=== PATIENT | female | born 1995 | race Asian ===

== ENCOUNTER → 2022-09-15 | Outpatient (CLI) | payer OTHER ==
[~2022-09-15] MED LIST: HYDR1TAB94 PO; IBUP600 PO; ONDA4ODT MM; PRENATAL TABLE1 EAC2 PO
[2022-09-15 16:57] LABS: BASOPHILS ABSOLUTE AUTO 0.12 K/mm3 (0.00-0.23); BASOPHILS PERCENT AUTO 1 % (0-2); EOSINOPHILS PERCENT AUTO 1 % (0-6); Hematocrit 36.3 % (33.0-51.0); Hemoglobin 13.3 g/dL (11.5-16.0); IMMATURE GRAN ABSOLUTE AUTO 0.09 K/mm3 (0.00-0.10); IMMATURE GRAN PERCENT AUTO 1 % (0-1); LYMPHOCYTES ABSOLUTE AUTO 3.05 K/mm3 (0.84-5.20); LYMPHOCYTES PERCENT AUTO 19 % (21-46); MONOCYTES PERCENT AUTO 6 % (4-13); Mean Corpuscular HGB 29.3 pg (26.0-34.0); Mean Corpuscular HGB Conc 36.6 g/dL (31.5-36.5); Mean Corpuscular Volume 80 fL (80-100); Mean Platelet Volume 9.3 fL (9.1-12.4); NEUTROPHILS ABSOLUTE AUTO 11.62 K/mm3 (1.96-9.15); NEUTROPHILS PERCENT AUTO 73 % (41-73); Platelet Count 397 K/mm3 (150-400); RDW Coefficient Variation 12.9 % (11.7-14.2); RDW Standard Deviation 36.5 fL (35.1-46.3); Red Blood Cell Count 4.54 M/mm3 (3.80-5.20); White Blood Cell Count 15.88 K/mm3 (4.00-11.30)
[2022-09-15 17:05] LABS: Albumin, Blood 3.8 g/dL (3.4-5.0); Albumin/Globulin Ratio 0.9 (0.8-1.8); Bilirubin, Total 0.4 mg/dL (0.1-1.0); Bun/Creatinine Ratio 15.2 (12.0-20.0); Calcium, Blood 9.3 mg/dL (8.5-10.1); Creatinine, Blood 0.46 mg/dL (0.40-1.00); Globulin, Blood 4.2 g/dL (2.2-4.0); Potassium, Blood 4.5 mmol/L (3.5-5.5)
== END | disposition home or self-care (01) ==
LOC: LAB 16:51 → LAB SHORT 16:51
PROVIDERS: Chiropractor
DX: R10.13 Epigastric pain (principal)
CPT/HCPCS: 80053; 83690; 85025; 87086

== ENCOUNTER 2022-09-16 12:11 | Inpatient (IN) | payer OTHER ==
[~2022-09-16] VITALS: Ht 157.5 cm; Wt 50.7 kg
[2022-09-16 13:15] LABS: BASOPHILS ABSOLUTE AUTO 0.03 K/mm3 (0.00-0.23); BASOPHILS PERCENT AUTO 0 % (0-2); EOSINOPHILS PERCENT AUTO 0 % (0-6); Hematocrit 35.6 % (33.0-51.0); Hemoglobin 12.6 g/dL (11.5-16.0); IMMATURE GRAN ABSOLUTE AUTO 0.09 K/mm3 (0.00-0.10); IMMATURE GRAN PERCENT AUTO 1 % (0-1); LYMPHOCYTES ABSOLUTE AUTO 0.98 K/mm3 (0.84-5.20); LYMPHOCYTES PERCENT AUTO 6 % (21-46); MONOCYTES ABSOLUTE AUTO 0.63 K/mm3 (0.16-1.47); MONOCYTES PERCENT AUTO 4 % (4-13); Mean Corpuscular HGB 28.8 pg (26.0-34.0); Mean Corpuscular HGB Conc 35.4 g/dL (31.5-36.5); Mean Corpuscular Volume 82 fL (80-100); Mean Platelet Volume 9.5 fL (9.1-12.4); NEUTROPHILS PERCENT AUTO 90 % (41-73); Platelet Count 362 K/mm3 (150-400); RDW Coefficient Variation 12.7 % (11.7-14.2); RDW Standard Deviation 38.2 fL (35.1-46.3); Red Blood Cell Count 4.37 M/mm3 (3.80-5.20); White Blood Cell Count 17.63 K/mm3 (4.00-11.30)
[2022-09-16 13:43] LABS: Albumin, Blood 3.6 g/dL (3.4-5.0); Albumin/Globulin Ratio 0.9 (0.8-1.8); Bilirubin, Total 1.6 mg/dL (0.1-1.0); Creatinine, Blood 0.37 mg/dL (0.40-1.00); Globulin, Blood 3.8 g/dL (2.2-4.0); Potassium, Blood 4.4 mmol/L (3.5-5.5); Total Protein, Blood 7.4 g/dL (6.4-8.2)
[2022-09-16 19:04] LABS: Cholesterol 118 mg/dL (50-200); Triglycerides 35 mg/dL (30-140)
[2022-09-16 20:36] LABS: Source, Urine Clean Catch
[2022-09-16 20:42] LABS: Bilirubin, Urine Neg (Neg); Blood, Urine 1+ (Neg); Glucose Qualitative, Urine Neg (Neg); Ketones, Urine 4+ (Neg); Leukocyte Esterase, Urine Neg (Neg); Nitrite, Urine Neg (Neg); Protein, Urine Neg (Neg); Urobilinogen, Urine NORM (Normal)
[2022-09-16 20:55] LABS: Appearance, Urine Clear (Clear); Color, Urine Yellow (P-Yellow)
[2022-09-16 20:57] LABS: Amorphous Light (0-Heavy); Bacteria Few /hpf; Mucus Light (0-Heavy); Red Blood Cells, Urine 0-2 /hpf (0-2); Squamous Epithelial Cells Mod /hpf (Few); White Blood Cells, Urine 0-2 /hpf (0-5)
[2022-09-16 21:36] VITALS: BP 99/79
--- NOTE | 2022-09-17 04:18 | NUR ---
SHIFT SUMMARY 27 YR F ADMITTED ON 09/16/22 FOR ACUTE PANCREATITIS. FULL CODE. NO ACUTE CHANGES THIS SHIFT. PT REPORTED PAIN AND WAS GIVEN FENTANYL PER EMAR BUT SHE STATED THAT IT MADE HER VERY DIZZY AND SHE DID NOT LIKE IT. SHE SLEPT FOR MOST OF THIS SHIFT. HER STAYED IN THE ROOM WITH HER ALL NIGHT. THERE IS A BIT OF A LANGUAGE BARRIER PT SPEAKS BROKEN PRYDEINIG AND SPEAKS VERY LITTLE PRYDEINIG. THEY ARE, HOWEVER, ABLE TO COMMUNICATE EFFECTIVELY. PER ED REPORT PT HAD NAUSEA AND VOMITING WHILE IN ED BUT NO N/V SINCE BEING ADMITTED TO THIS FLOOR. PT IS 13 WEEKS .
[2022-09-17 05:15] VITALS: BP 114/71
[2022-09-17 06:16] LABS: BASOPHILS ABSOLUTE AUTO 0.08 K/mm3 (0.00-0.23); BASOPHILS PERCENT AUTO 0 % (0-2); EOSINOPHILS ABSOLUTE AUTO 0.02 K/mm3 (0.00-0.68); EOSINOPHILS PERCENT AUTO 0 % (0-6); Hematocrit 32.6 % (33.0-51.0); Hemoglobin 11.6 g/dL (11.5-16.0); IMMATURE GRAN ABSOLUTE AUTO 0.11 K/mm3 (0.00-0.10); IMMATURE GRAN PERCENT AUTO 1 % (0-1); LYMPHOCYTES ABSOLUTE AUTO 1.95 K/mm3 (0.84-5.20); LYMPHOCYTES PERCENT AUTO 11 % (21-46); MONOCYTES ABSOLUTE AUTO 0.96 K/mm3 (0.16-1.47); MONOCYTES PERCENT AUTO 5 % (4-13); Mean Corpuscular HGB 28.9 pg (26.0-34.0); Mean Corpuscular HGB Conc 35.6 g/dL (31.5-36.5); Mean Corpuscular Volume 81 fL (80-100); Mean Platelet Volume 9.5 fL (9.1-12.4); NEUTROPHILS ABSOLUTE AUTO 14.79 K/mm3 (1.96-9.15); NEUTROPHILS PERCENT AUTO 83 % (41-73); Platelet Count 295 K/mm3 (150-400); RDW Coefficient Variation 12.9 % (11.7-14.2); RDW Standard Deviation 38.3 fL (35.1-46.3); Red Blood Cell Count 4.01 M/mm3 (3.80-5.20); White Blood Cell Count 17.91 K/mm3 (4.00-11.30)
[2022-09-17 06:42] LABS: Albumin, Blood 3.1 g/dL (3.4-5.0); Albumin/Globulin Ratio 0.9 (0.8-1.8); Bilirubin, Total 1.4 mg/dL (0.1-1.0); Bun/Creatinine Ratio 5.4 (12.0-20.0); Calcium, Blood 8.7 mg/dL (8.5-10.1); Creatinine, Blood 0.37 mg/dL (0.40-1.00); Globulin, Blood 3.5 g/dL (2.2-4.0); Magnesium, Blood 1.8 mg/dL (1.6-2.4); Potassium, Blood 3.8 mmol/L (3.5-5.5); Total Protein, Blood 6.6 g/dL (6.4-8.2)
[2022-09-17 07:44] VITALS: BP 108/67
[2022-09-17 15:27] VITALS: BP 99/64
--- NOTE | 2022-09-17 17:27 | NUR ---
SHIFT SUMMARY PATIENT ADMITTED WITH PANCREATITIS. PATIENT APPROX 11 WEEKS AND HAS HAD ISSUES WITH NAUSEA AND VOMITTING SINCE . PATIENT REQUIRING EDUCATION RELATED TO PANCREATITIS. EDUCATIONAL MATERIAL PROVIDED TO PATIENT AND . PATIENT VERY SENSITIVE TO ANY PAIN. REQUESTING IV TO BE MOVED BUT THEN COMPLAINING NEW IV WORSE THAN PREVIOUS. PATIENT CONTINUES TO HAVE BELLY PAIN, NO VOMITTING. PATIENT TAKING SIPS OF WATER AND ICE CHIPS. PATIENT MEDICATED WITH PO AND IV PAIN MEDICATIONS WITH MINIMAL RELIEF. PATIENT WANTING PAIN TO GO AWAY AND BE ABLE TO GO HOME. PATIENT ASSISTED UP TO BEDSIDE COMMODE THROUGHOUT THE SHIFT BY . PATIENT PREFERRING TO ASSIST WITH PERSONAL CARE. PATIENT WORRYING ABOUT AND CURRENT ILLNESS. PATIENT NEEDING REASSURANCE OF SITUATION.
[2022-09-18 04:15] VITALS: BP 105/73
--- NOTE | 2022-09-18 04:37 | NUR ---
SHIFT SUMMARY 27 YR F ADMITTED ON 09/16/22 FOR ACUTE PANCREATITIS. FULL CODE. NO ACUTE CHANGES THIS SHIFT. PT WAS SEEN BY HOSPITALIST WHO WAS ABLE TO COMMUNICATE WITH HER AND HER FAMILY IN THEIR PREFERRED LANGUAGE. DIET WAS ADVANCED TO CLEAR LIQUIDS AND PT TRIED SAOME APPLE JUICE BUT DID NOT LIKE IT AND DID NOT WANT ANYTHING ELSE. SHE C/O ABDOMINAL PAIN AND WAS GIVEN OXY PER EMAR. THIS SEEMS TO WORK NUCH BETTER FOR HER THAN IV MEDS SHE HAD NO C/O DIZZINESS WITH THE ORAL MED. HAS BEEN IN THE ROOM WITH PT FOR HER ENTIRE ADMISSION. SHE PREFERS FOR HIM TO CARE FOR HER.
[2022-09-18 04:51] LABS: Albumin, Blood 3.1 g/dL (3.4-5.0); Albumin/Globulin Ratio 0.8 (0.8-1.8); Bilirubin, Total 0.7 mg/dL (0.1-1.0); Bun/Creatinine Ratio 7.7 (12.0-20.0); Calcium, Blood 8.6 mg/dL (8.5-10.1); Creatinine, Blood 0.39 mg/dL (0.40-1.00); Globulin, Blood 3.9 g/dL (2.2-4.0); Potassium, Blood 3.9 mmol/L (3.5-5.5)
[2022-09-18 07:33] VITALS: BP 104/59
[2022-09-18 08:12] LABS: BASOPHILS ABSOLUTE AUTO 0.15 K/mm3 (0.00-0.23); BASOPHILS PERCENT AUTO 1 % (0-2); EOSINOPHILS ABSOLUTE AUTO 0.04 K/mm3 (0.00-0.68); EOSINOPHILS PERCENT AUTO 0 % (0-6); Hematocrit 33.7 % (33.0-51.0); Hemoglobin 11.8 g/dL (11.5-16.0); IMMATURE GRAN ABSOLUTE AUTO 0.09 K/mm3 (0.00-0.10); IMMATURE GRAN PERCENT AUTO 1 % (0-1); LYMPHOCYTES ABSOLUTE AUTO 1.92 K/mm3 (0.84-5.20); LYMPHOCYTES PERCENT AUTO 10 % (21-46); MONOCYTES ABSOLUTE AUTO 1.07 K/mm3 (0.16-1.47); MONOCYTES PERCENT AUTO 6 % (4-13); Mean Corpuscular HGB 29.1 pg (26.0-34.0); Mean Corpuscular Volume 83 fL (80-100); Mean Platelet Volume 10.3 fL (9.1-12.4); NEUTROPHILS ABSOLUTE AUTO 15.44 K/mm3 (1.96-9.15); NEUTROPHILS PERCENT AUTO 83 % (41-73); Platelet Count 332 K/mm3 (150-400); RDW Coefficient Variation 13.2 % (11.7-14.2); Red Blood Cell Count 4.05 M/mm3 (3.80-5.20); White Blood Cell Count 18.71 K/mm3 (4.00-11.30)
[2022-09-18 16:17] VITALS: BP 96/68
--- NOTE | 2022-09-18 17:46 | NUR ---
SHIFT SUMMARY PATIENT RESTED THROUGHOUT THE DAY. CONTINUES TO HAVE EPISODES NAUSEA, VOMITING AND PAIN. PATIENT MEDICATED FOR NAUSEA AND PAIN DURING SHIFT. LIPASE LEVEL DOWN TODAY. SURGEON INFORMED PATIENT NO SURGERY AT THIS TIME AND PROVIDED EDUCATION ON GALLBLADDER. INFORMED PATIENT THAT SHE WILL NEED SURGERY AFTER BABY IS BORN IF NO FURTHER ISSUES. DIET ADVANCED TO FULL LIQUID WITH LOW RESIDUE AND LOW FAT. PATIENT REFUSED TO SHOWER AT THIS TIME AND ONLY ALLOWING TO ASSIST WITH PERSONAL CARE NEEDS. EDUCATION PROVIDED TO PATIENT ON THE IMPORTANCE OF MOBILIZING. PATIENT REFUSING TO WALK BECAUSE OF WEAKNESS AND DIZZINESS WITH THE EXCEPTION OF GETTING UP TO USE COMMODE. AT BEDSIDE THROUGHOUT SHIFT.
[2022-09-18 19:11] VITALS: BP 94/61
--- NOTE | 2022-09-19 04:12 | NUR ---
SHIFT SUMMARY 27 YR F ADMITTED ON 09/16/22 FOR ACUTE PANCREATITS. FULL CODE. NO ACUTE CHANGES THIS SHIFT. PT IS GETTING VERY LITTLE ACTIVITY OR MOVEMENT SHE IS NOT WANTING TO GET OUT OF BED AT ALL. SHE C/O PAIN IN HER RIGHT ARM AND IT WAS EXPLAINED TO HER THAT SHE NEEDS TO MOVE AROUND A BIT SO HER MUSCLES DO NOT GET "STIFF". HER HAS BEEN IN THE ROOM WITH HER FOR HER ENTIRE ADMISSION AND HE DOES EVERYTHING FOR HER. SHE HAS HAD NO C/O N/V THIS SHIFT BUT DID C/O NEW BACK PAIN. AGAIN IT WAS EXPLAINED TO HER THE IMPORTANCE OF MOVING.
[2022-09-19 07:31] VITALS: BP 107/65
[2022-09-19 07:40] LABS: BASOPHILS ABSOLUTE AUTO 0.07 K/mm3 (0.00-0.23); BASOPHILS PERCENT AUTO 1 % (0-2); EOSINOPHILS ABSOLUTE AUTO 0.11 K/mm3 (0.00-0.68); EOSINOPHILS PERCENT AUTO 1 % (0-6); Hematocrit 29.9 % (33.0-51.0); Hemoglobin 10.9 g/dL (11.5-16.0); IMMATURE GRAN ABSOLUTE AUTO 0.04 K/mm3 (0.00-0.10); IMMATURE GRAN PERCENT AUTO 0 % (0-1); LYMPHOCYTES ABSOLUTE AUTO 2.06 K/mm3 (0.84-5.20); LYMPHOCYTES PERCENT AUTO 16 % (21-46); MONOCYTES ABSOLUTE AUTO 0.89 K/mm3 (0.16-1.47); MONOCYTES PERCENT AUTO 7 % (4-13); Mean Corpuscular HGB 29.3 pg (26.0-34.0); Mean Corpuscular HGB Conc 36.5 g/dL (31.5-36.5); Mean Corpuscular Volume 80 fL (80-100); Mean Platelet Volume 9.6 fL (9.1-12.4); NEUTROPHILS ABSOLUTE AUTO 9.54 K/mm3 (1.96-9.15); NEUTROPHILS PERCENT AUTO 75 % (41-73); Platelet Count 310 K/mm3 (150-400); RDW Coefficient Variation 12.8 % (11.7-14.2); RDW Standard Deviation 37.2 fL (35.1-46.3); Red Blood Cell Count 3.72 M/mm3 (3.80-5.20); White Blood Cell Count 12.71 K/mm3 (4.00-11.30)
[2022-09-19 08:03] LABS: Albumin, Blood 2.6 g/dL (3.4-5.0); Albumin/Globulin Ratio 0.6 (0.8-1.8); Bilirubin, Total 0.5 mg/dL (0.1-1.0); Bun/Creatinine Ratio 5.3 (12.0-20.0); Calcium, Blood 8.3 mg/dL (8.5-10.1); Creatinine, Blood 0.37 mg/dL (0.40-1.00); Potassium, Blood 3.4 mmol/L (3.5-5.5); Total Protein, Blood 6.6 g/dL (6.4-8.2)
--- NOTE | 2022-09-19 17:04 | NUR ---
PT IS A/PX4, PLEASANT AND COOPERATIVE, THE PT IS UP WITH MINIMAL ASSIST. THE PT WAS UP AND SHOWERED THIS AM. PT CONTINUED TO REPORT ABD PAIN THIS AM. PT WAS MEDICATED FOR NAUSEA AND FOR PAIN X2. THE PT WAS TAKING SMALL PORTIONS OF THE FULL LIQUID DIET. SO FAR THIS AFTERNOON THE PT AND HER APPEAR TO BE SLEEPING. CALL LIGHT IN REACH WILL CONTINUE TO MONITOR AND ASSESS FOR CHANGES
[2022-09-19 20:26] VITALS: BP 106/74
[2022-09-20 03:35] VITALS: BP 100/69
--- NOTE | 2022-09-20 03:35 | NUR ---
CONCERN EARLY IN SHIFT FROM PT, FAMILY ON PHONE, AND ABOUT SYMPTOMS NOT IMPROVING AFTER PT HAS BEEN ADMITTED FOR SEVERAL DAYS NOW. BRIEF DISCUSSION WITH EVERYBODY REGARDING NATURE OF DIAGNOSIS AND SYMPTOMS. UNFORTUNATELY I HAVE NOT HAD TIME THIS SHIFT TO REVIEW CHART AND BECOME MORE INTIMATELY FAMILIAR WITH PT HX, DIAGNOSIS, ETC. WILL TRY BEFORE SHIFT END. ENCOURAGED SPEAKING WITH DOCTOR DURING ROUNDS ABOUT ANY AND ALL CONCERNS. PAIN HAS BEEN WELL MANAGED THIS SHIFT. PT IS TRYING NOT TO USE PRN TORADOL MUCH POSSIBLE AND FEELS SHE CAN MANAGE WELL WITH PAIN REMAINING BELOW 5/10. SOME NAUSEA EARLY IN SHIFT, ADMINISTERED PRN BENADRYL PRESCRIBED FOR NAUSEA WHICH SEEMED TO HELP A BIT BUT NOT ALLEVIATE SYMPTOMS. NOT LONG AFTER ADMINISTRATION PT ATE A SMALL AMOUNT OF FOOD AND ALTHOUGH NEVER VOMITED DID HAVE SOME NAUSEA THEREAFTER. SHIFT HAS BEEN UNREMARKABLE OUTSIDE OF THIS. BED LOCKED IN LOWEST POSITION. INDEPENDENT WITHIN ROOM. CALL LIGHT LEFT WITHIN REACH.
[2022-09-20 07:14] VITALS: BP 107/78
[2022-09-20] MEDS ORDERED: PRENATAL TABLE1 EAC2 PO ×2 (12:56)
[2022-09-20] MEDS ORDERED: ONDA4ODT MM ×2 (12:57)
[2022-09-20] MEDS ORDERED: HYDR1TAB94 PO ×2 (12:58)
[2022-09-20] MEDS ORDERED: IBUP600 PO ×2 (12:59)
== END 2022-09-20 13:25 | disposition home or self-care (01) | DRG 831 ==
LOC: ER 12:11 → MEDS 21:01
PROVIDERS: Emergency Medicine; Internal Medicine; Nurse Practitioner Acute Care; Physician Assistant; ADMIT Internal Medicine
DX: O99.611 Diseases of the digestive system complicating pregnancy, first trimester (principal); K85.10 Biliary acute pancreatitis without necrosis or infection; R65.10 Systemic inflammatory response syndrome (SIRS) of non-infectious origin without acute organ dysfunction; Z3A.11 11 weeks gestation of pregnancy
CPT/HCPCS: 36415; 74181; 76705; 76801; 80053; 81001; 82465; 83605; 83615; 83690; 83735; 84478; 84702; 85025; 87040; 96361; 96365; 96375; 99285-25; A9270; J1170; J2405; J2543; J2765; J3010; J7030; J7120

== ENCOUNTER 2022-09-25 04:31 | Observation (INO) | payer OTHER ==
[~2022-09-25] VITALS: Ht 147.3 cm; Wt 49.9 kg
[2022-09-25 04:57] LABS: BASOPHILS ABSOLUTE AUTO 0.09 K/mm3 (0.00-0.23); BASOPHILS PERCENT AUTO 1 % (0-2); EOSINOPHILS ABSOLUTE AUTO 0.09 K/mm3 (0.00-0.68); EOSINOPHILS PERCENT AUTO 1 % (0-6); Hemoglobin 11.5 g/dL (11.5-16.0); IMMATURE GRAN ABSOLUTE AUTO 0.14 K/mm3 (0.00-0.10); IMMATURE GRAN PERCENT AUTO 1 % (0-1); LYMPHOCYTES ABSOLUTE AUTO 2.35 K/mm3 (0.84-5.20); LYMPHOCYTES PERCENT AUTO 17 % (21-46); MONOCYTES ABSOLUTE AUTO 0.96 K/mm3 (0.16-1.47); MONOCYTES PERCENT AUTO 7 % (4-13); Mean Corpuscular HGB 28.8 pg (26.0-34.0); Mean Corpuscular HGB Conc 35.9 g/dL (31.5-36.5); Mean Corpuscular Volume 80 fL (80-100); Mean Platelet Volume 9.9 fL (9.1-12.4); NEUTROPHILS ABSOLUTE AUTO 10.28 K/mm3 (1.96-9.15); NEUTROPHILS PERCENT AUTO 74 % (41-73); Platelet Count 465 K/mm3 (150-400); RDW Coefficient Variation 12.6 % (11.7-14.2); RDW Standard Deviation 36.2 fL (35.1-46.3); Red Blood Cell Count 3.99 M/mm3 (3.80-5.20); White Blood Cell Count 13.91 K/mm3 (4.00-11.30)
[2022-09-25 05:17] LABS: Albumin, Blood 3.1 g/dL (3.4-5.0); Albumin/Globulin Ratio 0.7 (0.8-1.8); Bilirubin, Total 0.5 mg/dL (0.1-1.0); Bun/Creatinine Ratio 18.3 (12.0-20.0); Calcium, Blood 8.8 mg/dL (8.5-10.1); Creatinine, Blood 0.33 mg/dL (0.40-1.00); Globulin, Blood 4.2 g/dL (2.2-4.0); Potassium, Blood 3.6 mmol/L (3.5-5.5); Total Protein, Blood 7.3 g/dL (6.4-8.2)
[2022-09-25] MEDS ORDERED: ONDA4ODT MM (05:19)
[2022-09-25 10:08] VITALS: BP 118/83
--- NOTE | 2022-09-25 10:41 | NUR ---
PATIENT CAME UP FROM ER TODAY AT 1030. PATIENT IS A&OX4. VS ARE WNL AND IS ON RA. PATIENT DID BECOME NAUSEOUS AND VOMITED GOING TO THE BATHROOM. PATIENT WAS GIVEN IV FLUIDS AND IV ZOFRAN. PATIENT REPORTS "FEELING A LITTLE BETTER ALREADY AGAIN". PATIENT REPORTS "A LITTLE" PAIN BUT REFUSES IV PAIN MEDICATIONS AT THIS TIME. ABD TONES ARE HYPERACTIVE. SHE IS VOIDING AND TOLERATING SMALL AMOUNTS OF PO INTAKE AFTER VOMITING. PATIENTS IS AT BEDSIDE. PATIENT IS LAYING IN BED WITH CALL LIGHT IN REACH.
--- NOTE | 2022-09-25 15:24 | NUR ---
SHIFT SUMMARY: NO SIGNIFICANT CHANGES SINCE ARRIVAL TO UNIT. PATIENT HAD NAUSEA/VOMITING ONCE THIS SHIFT BUT WAS MANAGED WITH IV ZOFRAN. SHE HAS DENIED PAIN SO FAR THIS SHIFT AND REFUSED PAIN MEDICATION. PATIENT IS TOLEARATING SMALL AMOUNTS OF PO CLEAR LIQUIDS. SHE IS VOIDING AND PASSING GAS. ABD IS TENDER TO PALPATE AND HAS HYPOACTIVE BOWEL TONES. PATIENT IS INDEP. IN THE ROOM. SHE IS CURRENTLY ASLEEP IN BED WITH EVEN/EQUAL RESPIRATIONS WITH CALL LIGHT IN REACH. PATIENT CALLS APPROPRIATELY. IS AT BEDSIDE IN RECLINER ALSO ASLEEP.
[2022-09-25 16:54] VITALS: BP 111/77
[2022-09-25 19:51] VITALS: BP 96/63
[2022-09-26 04:39] LABS: BASOPHILS ABSOLUTE AUTO 0.08 K/mm3 (0.00-0.23); BASOPHILS PERCENT AUTO 1 % (0-2); EOSINOPHILS ABSOLUTE AUTO 0.19 K/mm3 (0.00-0.68); EOSINOPHILS PERCENT AUTO 2 % (0-6); Hematocrit 30.6 % (33.0-51.0); Hemoglobin 10.9 g/dL (11.5-16.0); IMMATURE GRAN PERCENT AUTO 1 % (0-1); LYMPHOCYTES ABSOLUTE AUTO 2.65 K/mm3 (0.84-5.20); LYMPHOCYTES PERCENT AUTO 27 % (21-46); MONOCYTES ABSOLUTE AUTO 0.64 K/mm3 (0.16-1.47); MONOCYTES PERCENT AUTO 6 % (4-13); Mean Corpuscular HGB 28.8 pg (26.0-34.0); Mean Corpuscular HGB Conc 35.6 g/dL (31.5-36.5); Mean Corpuscular Volume 81 fL (80-100); Mean Platelet Volume 9.7 fL (9.1-12.4); NEUTROPHILS ABSOLUTE AUTO 6.34 K/mm3 (1.96-9.15); NEUTROPHILS PERCENT AUTO 63 % (41-73); Platelet Count 433 K/mm3 (150-400); RDW Coefficient Variation 12.7 % (11.7-14.2); RDW Standard Deviation 36.9 fL (35.1-46.3); Red Blood Cell Count 3.79 M/mm3 (3.80-5.20)
[2022-09-26 04:42] VITALS: BP 91/63
[2022-09-26 04:59] LABS: Albumin, Blood 2.8 g/dL (3.4-5.0); Albumin/Globulin Ratio 0.8 (0.8-1.8); Bilirubin, Total 0.4 mg/dL (0.1-1.0); Bun/Creatinine Ratio 6.5 (12.0-20.0); Calcium, Blood 8.7 mg/dL (8.5-10.1); Creatinine, Blood 0.31 mg/dL (0.40-1.00); Globulin, Blood 3.7 g/dL (2.2-4.0); Potassium, Blood 3.7 mmol/L (3.5-5.5); Total Protein, Blood 6.5 g/dL (6.4-8.2)
--- NOTE | 2022-09-26 06:37 | NUR ---
PT VSS T/O NIGHT. PT REP PAIN MINIMAL, DECLINED NEED FOR PAIN MEDS. PT LUKASZ SM AMT CL PO, DENIED N/V, REPORTS FEELING HUNGRY FOR MORE SOLID FOODS. PT UP INDEP IN ROOM. IVF CONT PER ORDERS. SUPPORTIVE IN ROOM.
[2022-09-26 07:17] VITALS: BP 105/73
--- NOTE | 2022-09-26 11:46 | NUR ---
PATIENT C/O PAIN RADIATING TO BACK. THIS RN EXPLAINED THAT IS COMMON WITH PANCREATITIS. PATIENT REQUESTED THIS RN NOTIFY DR BENNETT & HAVE HIM COME LOOK TO SEE WHERE THE PAIN IS IN THE PATIENTS BACK. THIS RN LEFT MESSAGE WITH DR BENNETT REGARDING THIS.
--- NOTE | 2022-09-26 15:17 | NUR ---
DISCHARGE PATIENT TOLERATING LOW FAT DIET, REPORTS MINIMAL/TOLERABLE PAIN, PER PATENT. VOIDING W/O DIFFICULTY. DR BENNETT DISCUSSED IN LENGTH SURGERY THIS VISIT VS COMING IN FOR ELECTIVE SURGERY NEXT WEEK, PATIENT ELECTED FOR DICHARGE TODAY AND PLAN FOR ELECTIVE SURGERY NEXT WEEK. DISCUSSE DISCHARGE INSTRUCTIONS & SENT WITH PATIENT. PATIENT DECLINED W/C, AMBULATED OUT WITH SPOUSE.
== END 2022-09-26 15:14 | disposition home or self-care (01) ==
LOC: ER 04:31 → SURS 07:32 → ER 07:42 → SURS 07:42 → MEDS 07:42 → SURS 09:51
PROVIDERS: Family Medicine; Student in an Organized Health Care Education/Training Program; Surgery; ADMIT Hospitalist
DX: O99.611 Diseases of the digestive system complicating pregnancy, first trimester (principal); K85.10 Biliary acute pancreatitis without necrosis or infection; K80.20 Calculus of gallbladder without cholecystitis without obstruction; Z3A.12 12 weeks gestation of pregnancy
CPT/HCPCS: 36415; 76705; 80053; 83690; 85025; A9270; J1170; J2405; J2765; J7120

== ENCOUNTER → 2022-09-29 | Outpatient (CLI) | payer OTHER ==
[2022-09-29 17:41] LABS: Source, Urine Clean Catch
[2022-09-29 19:17] LABS: U Amphetamine Screen Not Detected; U Barbituate Screen Not Detected; U Benzodiazapine Screen Not Detected; U Buprenorphine Screen Not Detected; U Cannabinoids Screen Not Detected; U Cocaine Screen Not Detected; U Methadone Screen Not Detected; U Methamphetamine Screen Not Detected; U Opiates Screen Not Detected; U Oxycodone Screen Not Detected; U Phencyclidine Screen Not Detected
[2022-09-29 19:18] LABS: U Propoxyphene Screen Not Detected
[2022-09-29 19:19] LABS: Bacteria Few /hpf; Red Blood Cells, Urine 0-2 /hpf (0-2); Squamous Epithelial Cells Mod /hpf (Few); White Blood Cells, Urine 0-2 /hpf (0-5)
== END | disposition home or self-care (01) ==
LOC: LAB 14:30 → LAB SHORT 14:30
PROVIDERS: Obstetrics & Gynecology
DX: Z34.01 Encounter for supervision of normal first pregnancy, first trimester (principal)
CPT/HCPCS: 81015; 87086

== ENCOUNTER → 2023-03-06 | Outpatient (CLI) | payer OTHER | LOC: LAB SHORT 10:30 → LAB 10:30 | DX: O09.893 Supervision of other high risk pregnancies, third trimester (principal); Z3A.00 Weeks of gestation of pregnancy not specified | CPT/HCPCS: 87081; 87150 ==

== ENCOUNTER 2023-04-05 18:38 | Inpatient (IN) | payer OTHER ==
[~2023-04-05] VITALS: Ht 144.8 cm; Wt 68.6 kg
[2023-04-05 19:30] VITALS: BP 125/76
[2023-04-05 20:17] LABS: BASOPHILS ABSOLUTE AUTO 0.16 K/mm3 (0.00-0.23); BASOPHILS PERCENT AUTO 1 % (0-2); EOSINOPHILS ABSOLUTE AUTO 0.18 K/mm3 (0.00-0.68); EOSINOPHILS PERCENT AUTO 1 % (0-6); Hematocrit 40.5 % (33.0-51.0); IMMATURE GRAN ABSOLUTE AUTO 0.61 K/mm3 (0.00-0.10); IMMATURE GRAN PERCENT AUTO 4 % (0-1); LYMPHOCYTES ABSOLUTE AUTO 3.63 K/mm3 (0.84-5.20); LYMPHOCYTES PERCENT AUTO 26 % (21-46); MONOCYTES PERCENT AUTO 9 % (4-13); Mean Corpuscular HGB 28.1 pg (26.0-34.0); Mean Corpuscular HGB Conc 34.6 g/dL (31.5-36.5); Mean Corpuscular Volume 81 fL (80-100); Mean Platelet Volume 10.1 fL (9.1-12.4); NEUTROPHILS ABSOLUTE AUTO 8.26 K/mm3 (1.96-9.15); NEUTROPHILS PERCENT AUTO 59 % (41-73); Platelet Count 300 K/mm3 (150-400); RDW Coefficient Variation 14.6 % (11.7-14.2); RDW Standard Deviation 42.6 fL (35.1-46.3); Red Blood Cell Count 4.99 M/mm3 (3.80-5.20); White Blood Cell Count 14.04 K/mm3 (4.00-11.30)
[2023-04-05 22:40] VITALS: BP 110/53
--- NOTE | 2023-04-05 23:13 | NUR ---
UNABLE TO PLACE CYTOTEC PER DR. WALL'S ORDERS D/T CONTRACTION PATTERN. DR. MAHMOOD COVERING FOR DR. WALL WAS NOTIFIED OF PATIENT'S INITIAL CBG, CTX PATTERN, VE, AND FHR. RECEIVED ORDERS FOR FLUID BOLUS, RECHECK CBG AT 2230, AND START LOW DOSE PITOCIN PER POLICY IF UNABLE TO PLACE CYTOTEC. FLUID BOLUS OF 500 MLS WAS INFUSED AND CTX PATTERN REMAINED OUTSIDE OF POLICY FOR HOURLY CAREGIVER OF CYTOTEC. LOW DOSE PITOCIN WAS STARTED PER POLICY WITH PATIENT'S CONSENT.
[2023-04-06] VITALS (25 sets, daily range): BP systolic 88–136; BP diastolic 52–88
[2023-04-07] VITALS (18 sets, daily range): BP systolic 103–130; BP diastolic 56–85
[2023-04-07 13:31] LABS: BASOPHILS ABSOLUTE AUTO 0.08 K/mm3 (0.00-0.23); BASOPHILS PERCENT AUTO 0 % (0-2); EOSINOPHILS ABSOLUTE AUTO 0.03 K/mm3 (0.00-0.68); EOSINOPHILS PERCENT AUTO 0 % (0-6); Hematocrit 33.6 % (33.0-51.0); Hemoglobin 11.7 g/dL (11.5-16.0); IMMATURE GRAN ABSOLUTE AUTO 0.22 K/mm3 (0.00-0.10); IMMATURE GRAN PERCENT AUTO 1 % (0-1); LYMPHOCYTES ABSOLUTE AUTO 2.58 K/mm3 (0.84-5.20); LYMPHOCYTES PERCENT AUTO 12 % (21-46); MONOCYTES ABSOLUTE AUTO 1.26 K/mm3 (0.16-1.47); MONOCYTES PERCENT AUTO 6 % (4-13); Mean Corpuscular HGB 28.7 pg (26.0-34.0); Mean Corpuscular HGB Conc 34.8 g/dL (31.5-36.5); Mean Corpuscular Volume 82 fL (80-100); Mean Platelet Volume 10.1 fL (9.1-12.4); NEUTROPHILS ABSOLUTE AUTO 17.22 K/mm3 (1.96-9.15); NEUTROPHILS PERCENT AUTO 81 % (41-73); Platelet Count 248 K/mm3 (150-400); RDW Coefficient Variation 14.7 % (11.7-14.2); RDW Standard Deviation 43.5 fL (35.1-46.3); Red Blood Cell Count 4.08 M/mm3 (3.80-5.20); White Blood Cell Count 21.39 K/mm3 (4.00-11.30)
[2023-04-08 00:19] VITALS: BP 119/64
[2023-04-08 04:20] VITALS: BP 126/67
[2023-04-08 08:17] VITALS: BP 123/75
[2023-04-08 11:58] VITALS: BP 136/82
[2023-04-08 17:10] VITALS: BP 115/67
[2023-04-08 21:10] VITALS: BP 127/76
[2023-04-09 00:23] VITALS: BP 119/77
[2023-04-09 04:41] VITALS: BP 127/79
[2023-04-09 07:47] VITALS: BP 118/65
[2023-04-09 11:16] VITALS: BP 129/74
[2023-04-09] MEDS ORDERED: OXAYDO5 M1 PO (14:46)
[2023-04-09] MEDS ORDERED: IBU800 MG PO (14:46)
[2023-04-09] MEDS ORDERED: ACET500 PO (14:47)
[2023-04-09 16:29] VITALS: BP 122/86
--- NOTE | 2023-04-09 18:30 | NUR ---
No acute changes t/o shift. Pt verbalized understanding of teaching, medication times, follow up, and how to reach MD and unit if needed. Denies additional questions/concerns. ID bands matched w/nb. Pt d/c'd home ambulatory to care of .
== END 2023-04-09 18:20 | disposition home or self-care (01) | DRG 786 ==
LOC: OBS 18:38 → BC 19:09
PROVIDERS: ADMIT Obstetrics & Gynecology
PROC: 10D00Z1 Extraction of Products of Conception, Low, Open Approach (ICD-10-PCS; principal; 2023-04-06 23:30)
DX: O24.420 Gestational diabetes mellitus in childbirth, diet controlled (principal); O41.1230 Chorioamnionitis, third trimester, not applicable or unspecified; Z3A.39 39 weeks gestation of pregnancy; Z37.0 Single live birth; O62.1 Secondary uterine inertia; O76 Abnormality in fetal heart rate and rhythm complicating labor and delivery; Z87.19 Personal history of other diseases of the digestive system; Z79.899 Other long term (current) drug therapy; Z67.21 Type B blood, Rh negative
CPT/HCPCS: 36415; 36416; 51702; 82947; 85025; 85460; 86850; 86900; 86901; 86923; 96372; A9270; J0456; J0694; J1885; J2210; J2405; J2590; J2765; J2791; J3010; J7050; J7120